=== PATIENT | female | born 1990 | race Two or more races ===

== ENCOUNTER 2024-10-02 14:21 | Emergency (ER) | payer MEDICAID, SELFPAY ==
[2024-10-02 14:39] VITALS: BP 114/74; PULSE 77; RESP 18; TEMP 37.1; O2SAT 95; BMI 33.4
--- NOTE | 2024-10-02 14:45 | PD.EDBACK ---
ED Back Injury Pain RME/HPI General Chief Complaint: Back Pain/Injury Stated Complaint: BACK PAIN AFTER LIFTING ON TUESDAY Time Seen by Provider: 10/02/24 14:39 Arrival date/time: 10/02/24 14:21 Limitations: no limitations RME / HPI RME / HPI Narrative: 34-year-old breast-feeding patient here for acute back pain. was lifting a box around her house and had sudden sharp pain from her lower back down to her leg. Saw PCP today and was sent today for further evaluation. Patient did not fall or injure self. [facility] PCP did not feel comfortable giving her any medication due to breast-feeding status. No fever no history of IV drug use no loss of bowel or bladder control Related Data Previous Rx's ?Medication ?Instructions ?Recorded hydrocodone 5 mg-acetaminophen 325 1 tab PO Q6H PRN pain #20 tabs 01/19/24 mg tablet IBU 800 mg tablet (ibuprofen) 800 mg PO Q6H PRN pain #30 tabs 10/02/24 acetaminophen 500 mg capsule 500 mg PO Q6H PRN pain #30 caps 10/02/24 Allergies Allergy/AdvReac Type Severity Reaction Status Date / Time No Known Allergies Allergy Verified 01/19/24 04:41 Review of Systems Review of Systems Systems Reviewed: All systems reviewed, normal except as documented Constitutional Constitutional: Denies fever(s) and Denies weakness Cardiovascular Cardiovascular: Denies syncope Musculoskeletal Musculoskeletal: Reports as per HPI Neurologic Neurologic: Denies lack of coordination, Denies syncope and Denies weakness ED Exam General Limitations: Present no limitations General appearance: Present alert and in no apparent distress Eye Eye exam: Present normal appearance, PERRL and EOMI Neck Neck exam: Present normal inspection, full ROM and trachea midline Chest Chest inspection: Present normal inspection and symmetric chest wall rise Respiratory Respiratory exam: Present normal lung sounds bilaterally Cardiovascular Cardiovascular exam: Present regular rate, normal rhythm and normal heart sounds Abdominal Exam Abdominal exam: Present soft and normal bowel sounds Extremities Exam Extremities exam: Present normal inspection and full ROM Back Exam Back exam: Present normal inspection, full ROM and tenderness (TTP to lumbar and right sciatic notch) Neurological Exam Neurological exam: Present alert, oriented X3 and reflexes normal Psychiatric Psychiatric exam: Present normal affect and normal mood Skin Skin exam: Present warm, dry, intact and normal color Course Quality Measures none Orders Category Date Time Status Dexamethasone Inj [Decadron Inj] Med 10/02/24 14:45 Discontinued 10 mg PO X1 ONE Ketorolac Inj [Toradol Inj] Med 10/02/24 14:45 Discontinued 30 mg IM X1 ONE Vital Signs Vital signs: Vital Signs Temperature 98.7 F 10/02/24 14:39 Pulse Rate 77 10/02/24 14:39 Respiratory Rate 18 10/02/24 14:39 Blood Pressure 114/74 10/02/24 14:39 Pulse Oximetry (%) 95 10/02/24 14:39 Oxygen Delivery Method Room Air 10/02/24 14:39 Back Pain / Injury MDM Narrative MDM Narrative:: 34-year-old female with acute back pain. At this time imaging or labs are warranted. Case may complicated only by breast-feeding which limits the use of medications. Involved patient decision making on which medication she felt comfortable using gave treatment here advised follow-up with PCP return to ER if symptoms worsen Patient data External records reviewed:: [facility] previous records Clinical information provided by:: patient Social determinants that could affect healthcare access:: other (specify) (Encounter performed in [place] patient's [place] language) Patient has the following chronic illnesses:: None How is presenting disease/condition affected by chronic disease/condition?: no chronic disease Evaluation data The following diagnostics were reviewed and interpreted by me:: other (specify) (None) Lab and/or radiology exams considered but not ordered:: X-ray of lumbar considered however unlikely to change the course of treatment today Interpretation Summary: No labs or imaging to interpret Medications / Prescriptions Medications or Prescriptions considered but not ordered:: Narcotics were considered however patient is hesitant to do breast-feeding status Medication administrations:: Medication Administration History Discontinued Medications Dexamethasone Sodium Phosphate (Dexamethasone Sod Phos Inj 10 Mg/Ml Vial) 10 mg PO X1 ONE Stop: 10/02/24 14:46 Last Admin: 10/02/24 14:57 Dose: 10 mg Documented By: Ketorolac Tromethamine (Ketorolac Inj 60 Mg/2 Ml Vial) 30 mg IM X1 ONE Stop: 10/02/24 14:46 Last Admin: 10/02/24 14:58 Dose: 30 mg Documented By: See above, prescription for ibuprofen Tylenol sent for home Consultations Consultation(s) initiated? (list below): No Diagnosis Differential diagnosis back pain/injury: lumbar radiculopathy, sciatica and discitis Most likely diagnosis given after review of the tests above:: Lumbar strain Right-sided Breast-feeding status Admission Indicated Admission indicated?: not indicated Admission Request Was there a request for admission?: No Disposition Plan Disposition Plan: Discharge Discharge Attestation Discharge Attestation: The patient and all family members were given an opportunity to ask questions and understood the discharge instructions. Discharge instructions specifically effects, indications for sooner follow up or return to the emergency department, and the expected course of current diagnosis. Patient condition: Stable Discharge Plan Plan Patient Disposition: HOME (Self Care) Discharge Disposition comment: Follow-up PCP in 2 to 3 days Prescriptions/Referrals Prescriptions/Med Rec: New ibuprofen [IBU] 800 mg tablet 800 mg PO Q6H PRN (Reason: pain) Qty: 30 0RF acetaminophen 500 mg capsule 500 mg PO Q6H PRN (Reason: pain) Qty: 30 0RF No Action hydrocodone-acetaminophen 5-325 mg tablet 1 tab PO Q6H MDD 4 PRN (Reason: pain) Qty: 20 0RF Problem List Clinical Impression: Strain of lumbar region, Sciatica Patient/Caregiver Discharge Instructions Education Materials: ED Back Sprain/Strain, ED Sciatica Print Language: [place] Stand Alone Forms: Maria Fernanda Award Info., Patient Portal Info Letter PA/INTERACTIVE PROJECT MANAGER Supervising Physician PA/INTERACTIVE PROJECT MANAGER Supervising Physician: Dr. Robbins
[2024-10-02] MEDS: DEXAMETHASONE SOD PHOS INJ 10 MG/ML VIAL PO (14:57)
[2024-10-02] MEDS: KETOROLAC INJ 60 MG/2 ML VIAL 30 MG IM (14:58)
== END 2024-10-02 15:23 | disposition home or self-care (01) ==
PROVIDERS: Emergency Provider Family Medicine; PCP Physician Assistant
DX: S39.012A Strain of muscle, fascia and tendon of lower back, initial encounter (principal); M54.41 Lumbago with sciatica, right side; X50.0XXA Overexertion from strenuous movement or load, initial encounter; Y93.89 Activity, other specified; Y92.009 Unspecified place in unspecified non-institutional (private) residence as the place of occurrence of the external cause
CPT/HCPCS: 96372; 99283; J1100; J1885